=== PATIENT | female | born 1990 | race Caucasian/White ===

== ENCOUNTER 2017-11-05 12:01 | Emergency (ER) | payer MEDICAID, OTHER ==
[~2017-11-05] VITALS: Ht 162.6 cm; Wt 80.0 kg
[2017-11-05 12:08] VITALS: BP 132/86
[2017-11-05] MEDS ORDERED: nyquil (12:15)
== END 2017-11-05 22:00 | disposition left against medical advice (07) ==
LOC: ER 12:01
DX: R50.9 Fever, unspecified (principal); Z53.21 Procedure and treatment not carried out due to patient leaving prior to being seen by health care provider